=== PATIENT | female | born 1975 | race Caucasian/White ===

== ENCOUNTER 2017-12-04 17:21 | Emergency (ER) | payer BC, OTHER ==
[2017-12-04] MEDS ORDERED: DIPHENHYDRAMINE HCL 25 MG CAPSULE ONE (18:16)
[2017-12-04] MEDS ORDERED: METHYLPREDNISOLONE SOD SUCC 40MG/ML 1ML ONE (18:16)
[2017-12-04] MEDS ORDERED: FAMOTIDINE 20MG TAB 20 MG TAB ONE (18:16)
== END 2017-12-04 18:29 | disposition home or self-care (01) ==
LOC: EDH 17:21
DX: T78.49XA Other allergy, initial encounter (principal); I10 Essential (primary) hypertension; Z90.49 Acquired absence of other specified parts of digestive tract; Z72.0 Tobacco use; X58.XXXA Exposure to other specified factors, initial encounter
CPT/HCPCS: 96372; 99283; J2920; Q0163

== ENCOUNTER 2020-11-20 15:39 | Emergency (ER) | payer BC, OTHER ==
[~2020-11-20] VITALS: Ht 167.6 cm; Wt 108.9 kg
[2020-11-20] MEDS ORDERED: CEPHALEXIN 500 MG CAPSULE ONE (16:10)
[2020-11-20] MEDS ORDERED: NIFEDIPINE ER 30 MG TAB PO ONE (16:26)
[2020-11-20] MEDS ORDERED: NIFEDIPINE 10 MG CAP PO SCH ×2 (16:30)
[2020-11-20] MEDS ORDERED: CEPHALEXIN 500 MG CAPSULE PO ONE (16:30)
[2020-11-20] MEDS ORDERED: CEPH500B PO (17:15)
[2020-11-20 17:16] VITALS: BP 137/91
== END 2020-11-20 17:34 | disposition home or self-care (01) ==
LOC: EDH 15:39
DX: L73.9 Follicular disorder, unspecified (principal); I10 Essential (primary) hypertension; E78.00 Pure hypercholesterolemia, unspecified; E66.9 Obesity, unspecified